=== PATIENT | male | born 1980 | race Caucasian/White ===

== ENCOUNTER 2016-05-10 13:19 | Emergency (ER) | payer OTHER ==
--- NOTE | 2016-05-10 14:09 | RAD ---
LEFT FOOT 3 VIEWS HISTORY: Left foot pain. COMPARISONS: 07/25/2015 TECHNIQUE: Frontal, lateral, and oblique views of the left foot. ALIGNMENT: Grossly unremarkable. FRACTURE: No displaced acute fracture. SOFT TISSUES: Grossly unremarkable. DEGENERATIVE CHANGE: Minor degeneration of the talonavicular joint and calcaneocuboid joint. RADIOOPAQUE FOREIGN BODY: None. IMPRESSION: No gross malalignment or displaced acute fracture noted. Minor degenerative changes.
== END 2016-05-10 14:55 | disposition home or self-care (01) ==
LOC: ED 13:19
DX: S93.602A Unspecified sprain of left foot, initial encounter (principal); M10.9 Gout, unspecified; F17.210 Nicotine dependence, cigarettes, uncomplicated; W20.8XXA Other cause of strike by thrown, projected or falling object, initial encounter; Y93.F1 Activity, caregiving, bathing; Y92.231 Patient bathroom in hospital as the place of occurrence of the external cause; Y99.0 Civilian activity done for income or pay